=== PATIENT | male | born 1955 ===

== ENCOUNTER 2018-03-27 22:06 | Emergency (ER) | payer MEDICAID, OTHER ==
[~2018-03-27] VITALS: Ht 182.9 cm; Wt 145.1 kg
[2018-03-28 00:50] VITALS: BP 0/0
--- NOTE | 2018-03-28 02:05 | ED CPR ---
HPI-CPR General Chief Complaint: Code Blue Stated Complaint: CODE BLUE Nursing Triage Note: PT BROUGHT IN BY [facility] CODE BLUE, CARDIAC/RESPIRATORY ARREST. Sepsis Screen: No Definite Risk Source of Information: EMS, Other (GIRLFRIEND/[facility]') History of Present Illness Date Seen by Provider: March 27, 2018 Time Seen by Provider: 22:04 Initial Comments PT [facility] VIA EMS [facility] EMS WAS CALLED TO THE HOUSE AT 2042 TONIGHT FOR A SYNCOPAL EPISODE--GIRLFRIEND WAS IN NEXT ROOM AND HEARD PT FALL. PT WAS INCONTINENT OF URINE, AT THAT TIME-- LOSS OF CONSCIOUSNESS WAS REPORTEDLY VERY BRIEF HE WAS AWAKE BY THE TIME GIRLFRIEND GOT INTO THE ROOM, AND PT WAS ABLE TO GET UP AND WALK TO BATHROOM AFTERWARD. NO APPARENT INJURIES. EMS WAS CALLED TO THE HOUSE, BUT PT ADAMANTLY REFUSED EMS CARE AND ADAMANTLY REFUSED TRANSPORT TO HOSPITAL--BP AT THAT TIME WAS 60-70'S/ 30-40'S PER EMS. EMS REPORT THAT PT HAD DENIED ANY CHEST PAIN AT THAT TIME JUAN MANUEL STATES THAT AFTER EMS LEFT, PT WENT TO BATHROOM AGAIN AND HE PASSED OUT OVER THE SIDE OF THE BATHTUB, FACE DOWN--NEIGHBOR ARRIVED PRIOR TO EMS AND NEIGHBOR COULD NOT FIND A PULSE AND PT WAS NOT BREATHING. NO BYSTANDER CPR WAS DONE EMS WAS CALLED AGAIN AT 2124 AND ON EMS ARRIVAL AT SCENE, PT WAS IN FULL ARREST WITH ASYSTOLE SHOWING ON MONITOR. CPR WAS INITIATED, COMBITUBE PLACED AND PT WAS GIVEN TOTAL OF EPINEPHRINE X 3 WITHOUT ANY CHANGE. NO SHOCKABLE RHYTHM--PT REMAINED IN ASYSTOLE THROUGHOUT EMS CARE. PT IS IN ASYSTOLE ON ARRIVAL TO ER, IS PULSELESS AND APNEIC CPR WAS CONTINUED ON ARRIVAL TO ER ASYSTOLE WAS CONFIRMED IN MULTIPLE LEADS NO FURTHER RESUSCITATIVE EFFORTS WERE DONE AND PT WAS PRONOUNCED AT 2205 GIRLFRIEND STATES THAT PT "JUST DIDN'T FEEL GOOD" ALL DAY TODAY, BUT HE DID NOT VOICE ANY SPECIFIC COMPLAINTS. PCP: DR. NATHEN FREEMAN IN [place], [place] PT LIVES IN [place], [place] Allergies and Home Medications Patient Home Medication List Home Medication List Reviewed: No Review of Systems Constitutional: other (UNABLE TO OBTAIN) Past Zecpafn-[id number] Hx Patient Social History Smoking Status: Unknown if Ever Smoked Recent Foreign Travel: No (UNK) Contact w/Someone Who Travel: No (UNK) Recent Infectious Disease Expo: No (UNK) Recent Hopitalizations: No (UNK) Immunizations Up To Date Tetanus Booster (TDap): Unknown Past Medical History Surgeries: No (UNKNOWN) COPD (POSSIBLY, PER GIRLFRIEND) Cardiac: No (UNKNOWN) Neurological: No (UNKNOWN) Genitourinary: No (UNKNOWN) Gastrointestinal: No (UNKNOWN) Musculoskeletal: No (UNKNOWN) Endocrine: No (OBESE, OTHERWISE UNKNOWN) HEENT: No (UNKNOWN) Cancer: No (UNKNOWN) Psychosocial: No (UNKNOWN) Integumentary: No (UNKNOWN) Blood Disorders: No (UNKNOWN) Physical Exam Vital Signs Vital Signs - First Documented 03/27/18 22:06 Temp 95.1 Pulse 0 Resp 0 B/P (MAP) 0/0 (0) Pulse Ox 0 O2 Delivery Ambu-Bag O2 Flow Rate 15.00 Capillary Refill : NONE General Appearance: Other (PT IS PULSELESS AND APNEIC) Progress/Results/Core Measures Results/Orders Vital Signs/I&O 03/27/18 03/27/18 03/28/18 22:06 22:13 00:50 Temp 95.1 Pulse 0 0 Resp 0 0 0 B/P (MAP) 0/0 (0) 0/0 (0) Pulse Ox 0 0 O2 Delivery Ambu-Bag Ambu Bag Ambu Bag O2 Flow Rate 15.00 15.00 0 Blood Pressure Mean: 0 Departure Communication (Admissions) GIRLFRIEND REPORTS THAT PT'S NEXT OF KIN IS HIS SON, MARYLOU MILTON, WHO LIVES IN [place], [place]--MULTIPLE ATTEMPTS TO CONTACT HIM HAVE BEEN UNSUCCESSFUL HE HAS A SISTER WHO LIVES IN [place], BUT ATTEMPTS TO CONTACT HER HAVE ALSO BEEN UNSUCCESSFUL GIRLFRIEND ADVISES TO CONTACT [facility] IN [place], [place] [address]--CONTACTED [facility]. THEY WILL ATTEMPT TO CONTACT PT' S PCP, DR. NATHEN FREEMAN AND HAVE HIM CALL HERE [phone]--SPOKE WITH DR. NATHEN FREEMAN, INFORMED HIM OF PT'S AND THAT PT'S BODY WOULD BE TRANSPORTED TO [facility], HE WILL SIGN CERTIFICATE. Impression Primary Impression: CARDIOPULMONARY ARREST WITH SUDDEN Disposition: 20 Condition: Departure-Patient Inst. Referrals: NO,LOCAL PHYSICIAN (PCP) Primary Care Physician JOSTIN CLARK DO March 28, 2018 02:05
== END 2018-03-28 00:50 | disposition expired ==
LOC: ER 22:07
DX: I46.9 Cardiac arrest, cause unspecified (principal); J44.9 Chronic obstructive pulmonary disease, unspecified; E66.9 Obesity, unspecified; Z68.41 Body mass index [BMI] 40.0-44.9, adult
CPT/HCPCS: 92950; 93041; 99291